=== PATIENT | female | born 1940 | race Caucasian/White ===

== ENCOUNTER 2021-07-14 09:08 | Outpatient (CLI) | payer MEDICARE, BC | END 2021-07-14 09:09 | disposition home or self-care (01) | LOC: BICRAD 09:08 | PROVIDERS: ATTEND Family Medicine | DX: I20.9 Angina pectoris, unspecified (principal); J44.9 Chronic obstructive pulmonary disease, unspecified | CPT/HCPCS: 71046 ==

== ENCOUNTER 2021-11-18 11:40 | Outpatient (CLI) | payer MEDICARE, BC | END 2021-11-18 11:41 | disposition home or self-care (01) | LOC: BICRAD 11:40 | PROVIDERS: ATTEND Family Medicine | DX: J16.8 Pneumonia due to other specified infectious organisms (principal) | CPT/HCPCS: 71046 ==

== ENCOUNTER 2022-11-15 18:02 | Inpatient (IN) | payer OTHER, MEDICARE, BC ==
[2022-11-15] MEDS ORDERED: Morphine 4 MG/ML VIAL ONE (18:16)
[2022-11-15] MEDS ORDERED: Ondansetron PF 4 MG/2 ML Vial ONE (18:17)
[2022-11-15] MEDS ORDERED: fentaNYL 50 mcg/mL 1 mL Vial ONE (19:18)
[2022-11-15] MEDS ORDERED: Ipratropium/Albuterol 3 ML NEB NEB PRN (19:46)
[2022-11-15] MEDS ORDERED: Ondansetron PF 4 MG/2 ML Vial IVP PRN (19:46)
[2022-11-15] MEDS ORDERED: Polyethylene Glycol 3350 17 GM Packet PO PRN (19:48)
[2022-11-15 19:59] LABS: #Eosinphils 0.1 thou/uL (0.0-0.7); #Monocytes 0.8 thou/uL (0.11-0.59); #Neutrophils 10.1 thou/uL (1.40-6.50); %Basophils 0.3 % (0.0-1.0); %Eosinophils 1.1 % (0.0-10.0); %Lymphocytes 11.2 % (21.0-51.0); %Monocytes 6.4 % (0.0-10.0); %Neutrophils 80.4 % (42.0-75.0); Hemoglobin 12.2 g/dL (12.0-16.0); Mean Corpuscular HGB CONC 31.1 g/dL (32.0-36.0); Mean Corpuscular Hemoglobin 29.3 pg (27.0-31.0); Mean Corpuscular Volume 94.2 fl (78.0-98.0); Mean Platelet Volume 8.7 fL (7.4-10.4); Platelet Count 326 10x3/uL (130-400); RBC Distribution Width 13.1 % (11.5-14.5); Red Blood Cell (RBC) Count 4.16 mill/uL (4.20-5.40); White Blood Cell (WBC) Count 12.6 10x3/uL (4.8-10.8)
[2022-11-15] MEDS ORDERED: Sodium Chloride 0.9% 1,000 ML IV SCH (20:00)
[2022-11-15 20:25] LABS: ALT (SGPT) 12 U/L (8-55); AST (SGOT) 15 U/L (5-34); Albumin 4.2 g/dL (3.4-4.8); Alkaline Phosphatase 131 U/L (40-110); Anion Gap 15 mmol/L (10-20); BUN (Urea Nitrogen) 32 mg/dL (9.8-20.1); Bilirubin, Total 0.6 mg/dL (0.2-1.2); Calc. Creatinine Clearance 0 mL/min (70-130); Calcium 9.2 mg/dL (7.8-10.44); Carbon Dioxide 23 mmol/L (23-31); Chloride 101 mmol/L (98-107); Estimated GFR 52; Globulin 3.8 g/dL (2.4-3.5); Glucose 107 mg/dL (83-110); Potassium 3.9 mmol/L (3.5-5.1); Sodium 135 mmol/L (136-145)
[2022-11-15] MEDS ORDERED: Famotidine/PF 20 mg/2ml Vial SLOW IVP SCH (21:00)
[2022-11-15] MEDS: Acetaminophen 325 MG TAB PO SCH (21:53)
[2022-11-15] MEDS: Morphine 2 MG/ML VIAL SLOW IVP PRN (21:53)
[2022-11-15] MEDS: traZODone HCl 50 MG TAB PO SCH (21:54)
[2022-11-15 22:31] VITALS: BMI 26.2
[2022-11-16] MEDS: Acetaminophen 325 MG TAB PO SCH ×4 (02:38→21:19)
[2022-11-16] MEDS: Levothyroxine Sodium 75 MCG TAB PO SCH (05:13)
[2022-11-16] MEDS: Morphine 2 MG/ML VIAL SLOW IVP PRN (05:13)
[2022-11-16 05:47] LABS: Bacteria/HPF None Seen HPF (None Seen); Bilirubin Negative (Negative); Blood, Urine Negative (Negative); CAUTI Indications for Culture Dysuria,urgency,freq; Clarity Clear (Clear); Glucose, Urine (Dipstick) Normal (Negative); Ketone, Urine Negative (Negative); Leukocyte Negative Leu/uL (Negative); Nitrite Negative (Negative); Protein, Urine (Dipstick) Negative (Neg-Trace); RBC/HPF 0-3 HPF (0-3); Specific Gravity, Urine 1.012 (1.002-1.036); Squamous Epithelial None Seen HPF (0-3); Urobilinogen Normal mg/dL (Less than 2); WBC/HPF 0-3 HPF (0-3)
[2022-11-16 06:00] LABS: #Basophils 0.1 thou/uL (0.0-0.2); #Eosinphils 0.1 thou/uL (0.0-0.7); #Monocytes 0.8 thou/uL (0.11-0.59); %Basophils 0.5 % (0.0-1.0); %Eosinophils 1.1 % (0.0-10.0); %Lymphocytes 9.4 % (21.0-51.0); %Monocytes 6.3 % (0.0-10.0); %Neutrophils 82.2 % (42.0-75.0); Mean Corpuscular HGB CONC 30.2 g/dL (32.0-36.0); Mean Corpuscular Hemoglobin 29.5 pg (27.0-31.0); Mean Platelet Volume 8.5 fL (7.4-10.4); Platelet Count 291 10x3/uL (130-400); Red Blood Cell (RBC) Count 4.07 mill/uL (4.20-5.40); White Blood Cell (WBC) Count 13.3 10x3/uL (4.8-10.8)
[2022-11-16 06:10] LABS: Mean Corpuscular Volume 97.5 fl (78.0-98.0)
[2022-11-16 06:15] LABS: Prothrombin Time 13.6 sec (12.0-14.7)
[2022-11-16 06:22] LABS: Anion Gap 14 mmol/L (10-20); BUN (Urea Nitrogen) 27 mg/dL (9.8-20.1); Calc. Creatinine Clearance 52 mL/min (70-130); Calcium 9.1 mg/dL (7.8-10.44); Carbon Dioxide 24 mmol/L (23-31); Chloride 102 mmol/L (98-107); Estimated GFR 61; Glucose 106 mg/dL (83-110); Magnesium 1.9 mg/dL (1.6-2.6); Phosphorus 3.8 mg/dL (2.3-4.7); Sodium 136 mmol/L (136-145)
[2022-11-16 06:50] LABS: Urine Culture Reflex No No
[2022-11-16] MEDS ORDERED: CEFAZOLIN 2 GM in Sodium Chloride 0.9% 100 ML IVPB SCH (08:00)
[2022-11-16] MEDS ORDERED: Famotidine/PF 20 mg/2ml Vial SLOW IVP SCH (09:00)
[2022-11-16] MEDS: Sodium Chloride 0.9% 1,000 ML IV SCH ×2 (09:25→18:30)
[2022-11-16] MEDS: Amlodipine 5 MG TAB PO SCH (09:29)
[2022-11-16] MEDS ORDERED: Sodium Chloride 0.9% 100 ML ONE (12:16)
[2022-11-16] MEDS ORDERED: CEFAZOLIN 2 GM VIAL ONE (12:16)
[2022-11-16] MEDS ORDERED: fentaNYL PF 100 MCG/2 ML SYRINGE ONE (12:17)
[2022-11-16] MEDS ORDERED: Ondansetron PF 4 MG/2 ML Vial ONE (12:33)
[2022-11-16] MEDS ORDERED: NEOSTIGMINE 3 MG/3 ML SYR 3 MG/3 ML SYRINGE ONE (12:33)
[2022-11-16] MEDS ORDERED: Dexamethasone 20 MG/5 ML VIAL ONE (12:33)
[2022-11-16] MEDS ORDERED: PROPOFOL 200 MG/20 ML VIAL ONE (12:33)
[2022-11-16] MEDS ORDERED: Glycopyrrolate 0.2 MG/ML 5 ML SYRINGE ONE (12:33)
[2022-11-16] MEDS ORDERED: Rocuronium Bromide 10 MG/ML (10ML VIAL) ONE (12:33)
[2022-11-16] MEDS ORDERED: fentaNYL 50 mcg/mL 1 mL Vial ONE ×2 (14:13→14:25)
[2022-11-16] MEDS: CEFAZOLIN 2 GM in Sodium Chloride 0.9% 100 ML IVPB SCH (21:19)
[2022-11-16] MEDS: traZODone HCl 50 MG TAB PO SCH (21:19)
[2022-11-17] MEDS: Acetaminophen 325 MG TAB PO SCH ×4 (02:37→21:55)
[2022-11-17] MEDS: Sodium Chloride 0.9% 1,000 ML IV SCH (04:21)
[2022-11-17 05:23] LABS: #Eosinphils 0.1 thou/uL (0.0-0.7); #Neutrophils 8.3 thou/uL (1.40-6.50); %Basophils 0.3 % (0.0-1.0); %Eosinophils 0.6 % (0.0-10.0); %Lymphocytes 12.3 % (21.0-51.0); %Monocytes 9.1 % (0.0-10.0); %Neutrophils 77.2 % (42.0-75.0); Mean Corpuscular HGB CONC 30.9 g/dL (32.0-36.0); Mean Corpuscular Hemoglobin 29.1 pg (27.0-31.0); Mean Platelet Volume 9.2 fL (7.4-10.4); Platelet Count 249 10x3/uL (130-400); RBC Distribution Width 12.9 % (11.5-14.5); Red Blood Cell (RBC) Count 3.09 mill/uL (4.20-5.40); White Blood Cell (WBC) Count 10.7 10x3/uL (4.8-10.8)
[2022-11-17] MEDS: CEFAZOLIN 2 GM in Sodium Chloride 0.9% 100 ML IVPB SCH (05:25)
[2022-11-17] MEDS: Levothyroxine Sodium 75 MCG TAB PO SCH (05:25)
[2022-11-17 05:51] LABS: Mean Corpuscular Volume 94.2 fl (78.0-98.0)
[2022-11-17] MEDS ORDERED: Non-Formulary Item 1 EACH (Sertraline Hcl [Sertraline Hcl] 50 MG Tablet) PO SCH (09:00)
[2022-11-17] MEDS: Amlodipine 5 MG TAB PO SCH (09:36)
[2022-11-17] MEDS: Sertraline 25 MG TAB PO SCH (09:36)
[2022-11-17] MEDS: Ascorbic Acid 500 mg Chewable Tablet PO SCH ×2 (09:36→21:55)
[2022-11-17] MEDS: Aspirin 81 mg Enteric Coated Tablet PO SCH ×2 (09:36→21:55)
[2022-11-17] MEDS: Acetaminophen/Codeine 30-300mg Tablet PO SCH ×3 (11:05→23:46)
[2022-11-17] MEDS ORDERED: traMADol HCl 50 MG TAB PO SCH (12:00)
[2022-11-17] MEDS: Ferrous Sulfate 325 MG TAB PO SCH (17:11)
[2022-11-17] MEDS: traZODone HCl 50 MG TAB PO SCH (21:55)
[2022-11-18 05:05] LABS: #Basophils 0.1 thou/uL (0.0-0.2); #Eosinphils 0.6 thou/uL (0.0-0.7); #Monocytes 1.1 thou/uL (0.11-0.59); #Neutrophils 8.5 thou/uL (1.40-6.50); %Basophils 0.5 % (0.0-1.0); %Eosinophils 5.1 % (0.0-10.0); %Lymphocytes 14.2 % (21.0-51.0); %Monocytes 8.8 % (0.0-10.0); %Neutrophils 70.8 % (42.0-75.0); Mean Corpuscular HGB CONC 31.9 g/dL (32.0-36.0); Mean Corpuscular Hemoglobin 30.4 pg (27.0-31.0); Mean Corpuscular Volume 95.3 fl (78.0-98.0); Mean Platelet Volume 8.8 fL (7.4-10.4); Platelet Count 229 10x3/uL (130-400); RBC Distribution Width 13.2 % (11.5-14.5); Red Blood Cell (RBC) Count 2.96 mill/uL (4.20-5.40)
[2022-11-18] MEDS: Acetaminophen/Codeine 30-300mg Tablet PO SCH ×3 (06:12→16:18)
[2022-11-18] MEDS: Levothyroxine Sodium 75 MCG TAB PO SCH (06:13)
[2022-11-18] MEDS: Acetaminophen 325 MG TAB PO SCH ×3 (06:17→16:18)
[2022-11-18] MEDS: Aspirin 81 mg Enteric Coated Tablet PO SCH (09:16)
[2022-11-18] MEDS: Ferrous Sulfate 325 MG TAB PO SCH ×2 (09:16→16:18)
[2022-11-18] MEDS: Ascorbic Acid 500 mg Chewable Tablet PO SCH (09:16)
[2022-11-18] MEDS: Sertraline 25 MG TAB PO SCH (09:16)
[2022-11-18] MEDS: Amlodipine 5 MG TAB PO SCH (09:17)
[2022-11-18] MEDS ORDERED: Sodium Chloride 0.9% 500 ML IV SCH (12:15)
[2022-11-18 15:35] VITALS: BP 111/58; TEMP 97.5
== END 2022-11-18 16:57 | DRG 522 ==
LOC: ERS 18:02 → SURG A 19:46
PROVIDERS: ADMIT Specialist; ATTEND Specialist
PROC: 0SRS0JA Replacement of Left Hip Joint, Femoral Surface with Synthetic Substitute, Uncemented, Open Approach (ICD-10-PCS; principal; 2022-11-16)
DX: S72.012A Unspecified intracapsular fracture of left femur, initial encounter for closed fracture (principal); E03.9 Hypothyroidism, unspecified; I10 Essential (primary) hypertension; F32.A Depression, unspecified; W19.XXXA Unspecified fall, initial encounter; D50.0 Iron deficiency anemia secondary to blood loss (chronic); Z86.73 Personal history of transient ischemic attack (TIA), and cerebral infarction without residual deficits; Z98.890 Other specified postprocedural states; Z88.8 Allergy status to other drugs, medicaments and biological substances; Y92.89 Other specified places as the place of occurrence of the external cause
CPT/HCPCS: 36415; 70450; 71045; 72170; 80048; 80053; 81001; 83735; 84100; 85025; 85610; 85730; 86850; 86900; 86901; 93005; 96374; 96375; C1713; C1776; G0390; J1100; J2270; J2272; J2405; J2704; J3010; J3490; J7030; J7050; P9045; S0028

== ENCOUNTER 2024-01-24 14:58 | Outpatient (CLI) | payer MEDICARE, BC | END 2024-01-24 14:59 | disposition home or self-care (01) | LOC: SCSRAD 14:58 | PROVIDERS: ATTEND Nurse Practitioner Family | DX: J44.9 Chronic obstructive pulmonary disease, unspecified (principal); M48.54XA Collapsed vertebra, not elsewhere classified, thoracic region, initial encounter for fracture | CPT/HCPCS: 71046 ==